=== PATIENT | male | born 1955 | race Caucasian/White ===

== ENCOUNTER 2019-10-31 12:28 | Inpatient (IN) | payer OTHER, MEDICARE ==
--- NOTE | 2019-10-31 13:19 | PDOC ---
History of Present Illness <Caitlin Ortega - Last Filed: 10/31/19 13:22> - General History Source: Patient Exam Limitations: No Limitations - History of Present Illness Initial Comments: 10/31/19 13:19 Source: Patient, altered, poor recall of today PCP: Alonzo Schulte HPI: 64yo M pmh HTN, DM, HLD, depression, anxiety and chronic neck and back pain presenting s/p fall at home at 4AM. Patient made coffee at 4AM, lost all recollection from that point onward. Family reports that patient has been treated for depression by PCP Dr. Schulte with Abilify, Lexapro, and PRN xanax and percocet. Dr. Schulte discontinued the Lexapro, family grew concerned and called to ask why. At this point patient was restarted on Symbalta. Over this period, patient has increased his xanax and percocet use, taking them and neglecting his other medications (BP, HLD, DM medications). Family reports that patient has been taking percocet every 1-1.5 hours, appeared to be altered for several days - insisted on driving despite intoxication, was found down this afternoon and was brought to the ED. Per family - patient has been on Xanax and Percocet for 10 years for leg pain and depression. Patient takes 1.5 pills of 10-325 percocet every 2-3 hours. He often washes these down with Red Bull per family. He was originally prescribed percocet for bilateral knee pain over 10 years ago. Per family, he has been experience more frequent falls over the past 2 months without significant head trauma. He now reports that he fell onto his arms without striking his head around 4 AM. Last medication use was at 2 AM. He was unable to get up and was moved with the help of EMS. Endorses continued weakness, denies any other concerns. Has never has a psychiatrist, medications are all managed by his PCP who has worked with family to attempt to change or wean his regimen. All: NKDA Meds: Per chart, noncompliant PMH: As above PSH: Abdominal Surgery 10+ years ago <Samir Del Cid - Last Filed: 10/31/19 18:05> - General Chief Complaint: Injury Stated Complaint: lethargic Time Seen by Provider: 02/23/20 13:17 Past History <Hugo Ortegaa Nettie - Last Filed: 10/31/19 13:22> - Travel Traveled outside of the country in the last 30 days: No Close contact w/someone who was outside of country & ill: No - Past Medical History COPD: No Diabetes: Yes GI Disorders: Yes (diverticulitis) HTN: Yes Hypercholesterolemia: Yes Psychiatric Problems: Yes (depression) - Surgical History Abdominal Surgery: Yes (colon resection) Neurologic Surgery: Yes (back) - Psycho Social/Smoking Cessation Hx Smoking History: Never smoked Have you smoked in the past 12 months: No Hx Alcohol Use: No Drug/Substance Use Hx: No <Samir Del Cid - Last Filed: 10/31/19 18:05> - Past Medical History Allergies/Adverse Reactions: Allergies Allergy/AdvReac Type Severity Reaction Status Date / Time No Known Allergies Allergy Verified 10/31/19 14:53 Home Medications: Ambulatory Orders Alprazolam 1 mg PO TID 10/31/19 Amlodipine/Atorvastatin [Amlodipine-Atorvast 5-20 mg] 1 each PO ASDIR 10/31/19 Aripiprazole 5 mg PO DAILY 10/31/19 Diclofenac Sodium 75 mg PO BID 10/31/19 Duloxetine HCl 60 mg PO DAILY 10/31/19 Escitalopram Oxalate [Lexapro -] 20 mg PO DAILY 10/31/19 Glipizide Xl [Glucotrol Xl -] 10 mg PO BID 10/31/19 Lisinopril/Hydrochlorothiazide [Lisinopril-Hctz 20-12.5 mg Tab] 1 each PO DAILY 10/31/19 Oxycodone HCl/Acetaminophen [Oxycodone-Acetaminophen 10-325] 1 each PO Q4H PRN 10/31/19 Pantoprazole Sodium 40 mg PO DAILY 10/31/19 Rosuvastatin [Crestor -] 10 mg PO DAILY 10/31/19 Review of Systems - Review of Systems Able to Perform ROS?: Yes Is the patient limited Gambian proficient: Yes Constitutional: Yes: Diaphoresis. No: Chills, Fever HEENTM: No: Nose Congestion, Throat Pain Respiratory: No: Cough, Shortness of Breath Cardiac (ROS): No: Chest Pain, Edema, Irregular Heart Rate, Lightheadedness, Palpitations, Syncope, Chest Tightness ABD/GI: No: Blood Streaked Bowels, Constipated, Diarrhea, Nausea, Poor Appetite , Poor Fluid Intake, Vomiting, Tarry Stools : No: Burning, Dysuria, Frequency Musculoskeletal: No: Muscle Pain, Muscle Weakness, Neck Pain Integumentary: No: Bruising, Pruritus, Rash Neurological: No: Headache, Numbness, Tingling, Weakness Psychiatric: No: Stressors, Change in Appetite Endocrine: No: Increased Thirst, Increased Urine Hematologic/Lymphatic: No: Anemia, Blood Clots, Easy Bleeding All Other Systems: Reviewed and Negative <Samir Del Cid - Last Filed: 10/31/19 18:05> *Physical Exam - Vital Signs Last Vital Signs Temp Pulse Resp BP Pulse Ox 99.1 F 102 H 20 136/68 93 L 10/31/19 12:53 10/31/19 12:53 10/31/19 12:53 10/31/19 12:53 10/31/19 12:53 <JordanCaitlin Nettie - Last Filed: 10/31/19 13:22> - Vital Signs Last Vital Signs Temp Pulse Resp BP Pulse Ox 99.1 F 102 H 20 136/68 93 L 10/31/19 12:53 10/31/19 12:53 10/31/19 12:53 10/31/19 12:53 10/31/19 12:53 - Physical Exam 10/31/19 15:14 Vitals reviewed, low grade fever, tachycardic, sat low 90s GEN: Well appearing, appears stated age, NAD, comfortable. AAOx3. HEENT: NCAT, EOMI, PERRL. Sclera anicteric, noninjected. No facial asymmetry. Moist mucous membranes. Normal voice. Trachea midline. CV: RRR, S1/S2, no murmurs / rubs / gallops appreciated. LUNG: CTAB, normal work of breathing. No wheezes, rales, rhonchi. No cough. Speaking full sentences. GI: Soft, NTND, +BS, no guarding, no rebound. No masses. Neg CVAT b/l. EXTREMITIES: 2+ distal pulses. No LE edema. No obvious deformities of all extremities. SKIN: Warm, +diaphoretic, no rashes appreciated, non-jaundiced. PSYCH: Normal mood and affect. Cooperative and appropriate. NEURO: CN grossly intact. Grossly weak, unable to turn himself over. <Samir Del Cid - Last Filed: 10/31/19 18:05> ED Treatment Course - ADDITIONAL ORDERS Additional order review: Laboratory Results 10/31/19 12:59 POC Glucometer 181 10/31/19 12:59 POC Glucometer 181 <Caitlin Ortega - Last Filed: 10/31/19 13:22> - LABORATORY CBC & Chemistry Diagram: 10/31/19 14:13 10/31/19 14:13 - ADDITIONAL ORDERS Additional order review: Laboratory Results 10/31/19 12:59 POC Glucometer 181 10/31/19 12:59 POC Glucometer 181 <Samir Del Cid - Last Filed: 10/31/19 18:05> Medical Decision Making - Medical Decision Making 10/31/19 14:12 64yo M pmh HTN, DM, HLD, depression, anxiety and chronic neck and back pain presenting s/p fall at home at 4AM with retrograde amnesia in setting of reported xanax / percocet abuse. History concerning for drug use, amnesia. Exam notable for tachycardia, reduced O2Sat, tachypnea, low-grade temperature. DDX: Intoxication, Overdose, Withdrawal, Seizure, Liver failure, Vascular accident, Infection, Electrolyte derangement, Trauma. - CBC, CMP, Cardiac, TSH, Coags, VBG, BGM, Ammonia - UA, UTox, Acetaminophen, Salicylates - Cardiac Monitoring - EKG, CXR, NCHCT 10/31/19 15:24 - 0.50 Ativan IV for possible withdrawal (>12hours since last xanax use) 10/31/19 15:27 Laboratory Tests 10/31/19 10/31/19 10/31/19 12:59 14:13 14:13 WBC RBC Hgb Hct MCV MCH MCHC RDW Plt Count MPV Absolute Neuts (auto) Neutrophils % Lymphocytes % Monocytes % Eosinophils % Basophils % Nucleated RBC % PT with INR 11.90 INR 1.01 PTT (Actin FS) 27.1 VBG pH POC VBG pCO2 POC VBG pO2 VBG HCO3 VBG O2 Sat ([place]) VBG Base Excess Sodium Potassium Chloride Carbon Dioxide Anion Gap BUN Creatinine Est GFR (CKD-EPI)AfAm Est GFR (CKD-EPI)NonAf POC Glucometer 181 Random Glucose Lactic Acid Calcium Total Bilirubin AST ALT Alkaline Phosphatase Troponin I 0.05 Total Protein Albumin TSH 10/31/19 10/31/19 10/31/19 14:13 14:13 14:13 WBC 8.9 RBC 3.92 L Hgb 12.3 Hct 36.3 MCV 92.7 MCH 31.5 MCHC 34.0 RDW 12.7 Plt Count 363 MPV 7.3 L Absolute Neuts (auto) 7.4 Neutrophils % 83.1 H D Lymphocytes % 9.9 D Monocytes % 6.6 Eosinophils % 0.1 D Basophils % 0.3 Nucleated RBC % 0 PT with INR INR PTT (Actin FS) VBG pH POC VBG pCO2 POC VBG pO2 VBG HCO3 VBG O2 Sat ([place]) VBG Base Excess Sodium 140 Potassium 4.0 Chloride 106 Carbon Dioxide 27 Anion Gap 8 BUN 24.1 H Creatinine 1.0 Est GFR (CKD-EPI)AfAm 90.50 Est GFR (CKD-EPI)NonAf 78.08 POC Glucometer Random Glucose 200 H Lactic Acid 1.5 Calcium 9.5 Total Bilirubin 0.5 AST 30 ALT 28 Alkaline Phosphatase 84 Troponin I Total Protein 7.7 Albumin 4.1 TSH 0.68 10/31/19 14:13 WBC RBC Hgb Hct MCV MCH MCHC RDW Plt Count MPV Absolute Neuts (auto) Neutrophils % Lymphocytes % Monocytes % Eosinophils % Basophils % Nucleated RBC % PT with INR INR PTT (Actin FS) VBG pH 7.40 POC VBG pCO2 42.5 POC VBG pO2 58 H VBG HCO3 25.9 VBG O2 Sat ([place]) 86.5 H VBG Base Excess 1.5 Sodium Potassium Chloride Carbon Dioxide Anion Gap BUN Creatinine Est GFR (CKD-EPI)AfAm Est GFR (CKD-EPI)NonAf POC Glucometer Random Glucose Lactic Acid Calcium Total Bilirubin AST ALT Alkaline Phosphatase Troponin I Total Protein Albumin TSH - Labs largely unremarkable, imaging pending - No acute chest pathology on Xray 10/31/19 17:18 - Urine without UTI - Urine Positive for Benzos and Opiates - Spoke with PCP Dr. Schulte, agrees with admission for weakness, weaning from medications - PCP recommend disposition to rehab program pending physical weaning Dispo: Med/Surg - Med rec / Poly Pharm assessment - Weakness - Social Work for OP Rehab? 10/31/19 18:04 - Sign-out given to Dr. Inderjit Person <Samir Del Cid - Last Filed: 10/31/19 18:05> Discharge <Caitlin Ortega - Last Filed: 10/31/19 13:22> - Discharge Information Problems reviewed: Yes <Samir Del Cid - Last Filed: 10/31/19 18:05> - Discharge Information Clinical Impression/Diagnosis: Weakness, Benzodiazepine dependence Fall Qualifiers: Encounter type: initial encounter Qualified Code(s): W19.XXXA - Unspecified fall, initial encounter Medication adverse effect Qualifiers: Encounter type: subsequent encounter Qualified Code(s): T50.905D - Adverse effect of unspecified drugs, medicaments and biological substances, subsequent encounter Opiate dependence Qualifiers: Substance use status: with unspecified opioid-induced disorder Qualified Code(s ): F11.29 - Opioid dependence with unspecified opioid-induced disorder Condition: Guarded - Follow up/Referral Referrals: Alonzo Schulte MD [Primary Care Provider] -
--- NOTE | 2019-10-31 13:24 | PDOC ---
Attending Attestation - Resident Resident Name: Samir Del Cid - ED Attending Attestation I have performed the following: I have examined & evaluated the patient, The case was reviewed & discussed with the resident, I agree w/resident's findings & plan, Exceptions are as noted - HPI HPI: 10/31/19 13:22 64 yo male who has long history of depression and takes several psychotropic meds took percocet and became very fatigued and laid on the floor . Family reports he has had multiple falls lately 10/31/19 18:31 - Physicial Exam PE: 10/31/19 18:43 64 yo BIBA from home becasue he was so weak he spent the night on the floor. He had been taking both zantac and pain meds head no scalp lacerations neck supple lungs cta b/l cvs [id number] abd no rebound, no guarding extremities no deformities neuro conversant ,moving all extremities 10/31/19 19:01 - Medical Decision Making 10/31/19 17:18 Drug screen is positive for opiates and benzos CBC and chemistries are essentially unremarkable 64-year-old male with chronic knee pain and long-term Percocet use has had multiple falls Dr Schulte agrees to admission 10/31/19 17:19 ct scan head
[2019-10-31] MEDS ORDERED: SODIUM CHLORIDE 0.9% 500 ML INFUS.BAG IV ONE (13:56)
[2019-10-31 14:41] LABS: VENOUS PC02 42.5 mmHg (38-52); VENOUS PH 7.4 (7.31-7.41)
[2019-10-31 14:46] LABS: BASO % 0.3 % (0-2.0); EOS % 0.1 % (0-4.5); HEMATOCRIT 36.3 % (35.4-49); HEMOGLOBIN 12.3 GM/dL (11.7-16.9); LYMPH % 9.9 % (8-40); MCH 31.5 pg (25.7-33.7); MEAN CELL VOLUME 92.7 fl (80-96); MEAN PLT VOLUME 7.3 fl (7.5-11.1); MONO % 6.6 % (3.8-10.2); NEUT % 83.1 % (42.8-82.8); PLATELET COUNT 363 K/MM3 (134-434); RBC 3.92 M/mm3 (4.00-5.60); RDW 12.7 % (11.9-15.9); WHITE BLOOD COUNT 8.9 K/mm3 (4.0-10.0)
[2019-10-31 15:02] LABS: INR 1.01 (0.83-1.09); PROTHROMBIN TIME (PATIENT) 11.9 SEC (9.7-13.0)
[2019-10-31 15:04] LABS: ACTIVATED PTT 27.1 SECONDS (25.2-36.5)
[2019-10-31] MEDS ORDERED: LORazepam 2 MG/ML SDV VIAL ONE (15:06)
[2019-10-31 15:09] LABS: ALBUMIN 4.1 g/dl (3.4-5.0); BILIRUBIN,TOTAL 0.5 mg/dL (0.2-1); BLOOD UREA NITROGEN 24.1 mg/dL (7-18); CALCIUM 9.5 mg/dL (8.5-10.1); TOT PROT 7.7 g/dl (6.4-8.2)
[2019-10-31 15:40] LABS: EPI CELLS 0.2 /HPF (0-5/HPF); HYALINE CASTS 0 /lpf (0-8); URINE APPEARANCE CLEAR; URINE BACTERIA 0.3 /hpf (NEGATIVE); URINE BILIRUBIN NEGATIVE (NEGATIVE); URINE COLOR YELLOW; URINE GLUCOSE (UA) NEGATIVE (NEGATIVE); URINE KETONE 1+ (NEGATIVE); URINE LEUK ESTERASE NEGATIVE (NEGATIVE); URINE NITRITE NEGATIVE (NEGATIVE); URINE PROTEIN 1+ (NEGATIVE); URINE RBC 0 /hpf (0-4); URINE UROBILINOGEN 0.2 mg/dL (0.2-1.0); URINE WBC 0 /hpf (0-5)
[2019-10-31 15:47] LABS: COCAINE, UR NEGATIVE ng/ml (CUTOFF=300); METHADONE, UR NEGATIVE ng/ml (CUTOFF=300); PHENCYCLIDINE,URINE NEGATIVE ng/ml (CUTOFF=25); URINE AMPHETAMINES NEGATIVE ng/ml (CUTOFF=500); URINE BARBITURATES NEGATIVE ng/ml (CUTOFF=200)
[2019-10-31 15:49] LABS: OPIATES, URI POSITIVE ng/ml (CUTOFF=300); URINE BENZODIAZEPINES POSITIVE ng/ml (CUTOFF=200)
--- NOTE | 2019-10-31 18:56 | HP ---
CHIEF COMPLAINT: mechanical fall PCP: Dr. Schulte HISTORY OF PRESENT ILLNESS: This is a 64 y/o M with a PMHx of DM, HTN, HLD, anxiety, chronic neck/knee pain(on chronic percocet use) on several psych meds presenting s/p mechanical fall. Pt states he was making coffee around 4 am and was trying to sit down but missed the chair and fell on his buttock. He denies any loc, head trauma, bowel/bladder incontinence, focal weakness, or seizure like activity. States he could not get up from the floor due to "arm weakness". His found him lying on his belly. Pt has not taken any of his medications for the past 2-3 wks except for 1 1/2 percocet pills for 20+ yrs and 1mg TID of xanax prescribed by Dr. Schulte for his depression and chronic knee pain. He had a discectomy L4-L5 surgery and had a fall in past injuring his arm. Pt denies ever seeing a psych doctor. He refused to see one although he was recommended to see one numerous times ER course was notable for: (1) (2) (3) Recent Travel: denies PAST SURGICAL HISTORY: Social History: Smoking: denies Alcohol: denies Drugs: denies Allergies No Known Allergies Allergy (Verified 10/31/19 14:53) HOME MEDICATIONS: Home Medications Medication Instructions Recorded Alprazolam 1 mg PO TID 10/31/19 Amlodipine/Atorvastatin 1 each PO ASDIR 10/31/19 [Amlodipine-Atorvast 5-20 mg] Aripiprazole 5 mg PO DAILY 10/31/19 Diclofenac Sodium 75 mg PO BID 10/31/19 Duloxetine HCl 60 mg PO DAILY 10/31/19 Escitalopram Oxalate [Lexapro -] 20 mg PO DAILY 10/31/19 Glipizide Xl [Glucotrol Xl -] 10 mg PO BID 10/31/19 Lisinopril/Hydrochlorothiazide 1 each PO DAILY 10/31/19 [Lisinopril-Hctz 20-12.5 mg Tab] Oxycodone HCl/Acetaminophen 1 each PO Q4H PRN 10/31/19 [Oxycodone-Acetaminophen 10-325] Pantoprazole Sodium 40 mg PO DAILY 10/31/19 Rosuvastatin [Crestor -] 10 mg PO DAILY 10/31/19 REVIEW OF SYSTEMS Negative PHYSICAL EXAMINATION Vital Signs - 24 hr 10/31/19 10/31/19 12:53 15:33 Temperature 99.1 F Pulse Rate 102 H Pulse Rate [ 85 Radial] Respiratory 20 20 Rate Blood Pressure 136/68 Blood Pressure 129/76 [Left Arm] O2 Sat by Pulse 93 L 95 Oximetry (%) GENERAL: Awake, alert, and oriented, in no acute distress. Lying comfortably in bed w at bedside. EYES: Pupils equal, round and reactive to light, miosis b/l, extraocular movements intact. LUNGS: Breath sounds equal, clear to auscultation bilaterally. No wheezes, and no crackles. No accessory muscle use. HEART: Regular rate and rhythm, normal S1 and S2 without murmur, rub or gallop. ABDOMEN: Soft, nontender, not distended, normoactive bowel sounds, no guarding, no rebound, no masses. No hepatomegaly or splenomegaly. LOWER EXTREMITIES: 2+ pulses, warm, well-perfused. No calf tenderness. No peripheral edema. NEUROLOGICAL: Cranial nerves II-XII intact. Normal speech. Normal gait. PSYCHIATRIC: Cooperative. Good eye contact. SKIN: Warm, dry, no rashes or lesions noted, normal capillary refill. Laboratory Results - last 24 hr 10/31/19 10/31/19 10/31/19 14:13 14:13 14:13 WBC 8.9 RBC 3.92 L Hgb 12.3 Hct 36.3 MCV 92.7 MCH 31.5 MCHC 34.0 RDW 12.7 Plt Count 363 MPV 7.3 L Absolute Neuts (auto) 7.4 Neutrophils % 83.1 H D Lymphocytes % 9.9 D Monocytes % 6.6 Eosinophils % 0.1 D Basophils % 0.3 Nucleated RBC % 0 PT with INR INR PTT (Actin FS) VBG pH POC VBG pCO2 POC VBG pO2 VBG HCO3 VBG O2 Sat ([place]) VBG Base Excess Sodium 140 Potassium 4.0 Chloride 106 Carbon Dioxide 27 Anion Gap 8 BUN 24.1 H Creatinine 1.0 Est GFR (CKD-EPI)AfAm 90.50 Est GFR (CKD-EPI)NonAf 78.08 POC Glucometer Random Glucose 200 H Lactic Acid 1.5 Calcium 9.5 Total Bilirubin 0.5 AST 30 ALT 28 Alkaline Phosphatase 84 Ammonia Troponin I Total Protein 7.7 Albumin 4.1 TSH 0.68 Urine Color Urine Appearance Urine pH Ur Specific [place] Urine Protein Urine Glucose (UA) Urine Ketones Urine Blood Urine Nitrite Urine Bilirubin Urine Urobilinogen Ur Leukocyte Esterase Urine WBC (Auto) Urine RBC (Auto) Urine Casts (Auto) U Epithel Cells (Auto) Urine Bacteria (Auto) Salicylates Opiates Screen Methadone Screen Barbiturate Screen Phencyclidine Screen Ur Amphetamines Screen MDMA (Ecstasy) Screen Benzodiazepines Screen Cocaine Screen U Marijuana (THC) Screen 10/31/19 10/31/19 10/31/19 14:13 15:20 15:20 WBC RBC Hgb Hct MCV MCH MCHC RDW Plt Count MPV Absolute Neuts (auto) Neutrophils % Lymphocytes % Monocytes % Eosinophils % Basophils % Nucleated RBC % PT with INR INR PTT (Actin FS) VBG pH 7.40 POC VBG pCO2 42.5 POC VBG pO2 58 H VBG HCO3 25.9 VBG O2 Sat ([place]) 86.5 H VBG Base Excess 1.5 Sodium Potassium Chloride Carbon Dioxide Anion Gap BUN Creatinine Est GFR (CKD-EPI)AfAm Est GFR (CKD-EPI)NonAf POC Glucometer Random Glucose Lactic Acid Calcium Total Bilirubin AST ALT Alkaline Phosphatase Ammonia Troponin I Total Protein Albumin TSH Urine Color Yellow Urine Appearance Clear Urine pH 5.0 Ur Specific [place] 1.016 Urine Protein 1+ H Urine Glucose (UA) Negative Urine Ketones 1+ H Urine Blood Trace Urine Nitrite Negative Urine Bilirubin Negative Urine Urobilinogen 0.2 Ur Leukocyte Esterase Negative Urine WBC (Auto) 0 Urine RBC (Auto) 0 Urine Casts (Auto) 0 U Epithel Cells (Auto) 0.2 Urine Bacteria (Auto) 0.3 Salicylates Opiates Screen Positive A* Methadone Screen Negative Barbiturate Screen Negative Phencyclidine Screen Negative Ur Amphetamines Screen Negative MDMA (Ecstasy) Screen Negative Benzodiazepines Screen Positive A* Cocaine Screen Negative U Marijuana (THC) Screen Negative ASSESSMENT/PLAN: This is a 64 y/o M with a PMHx of DM, HTN, HLD, anxiety, chronic neck/knee pain( on chronic percocet use) on several psych meds presenting s/p mechanical fall. Pt states he was making coffee around 4 am and was trying to sit down but missed the chair and fell on his buttock. #Mechanical fall - high dose of alprazolam, percocet for multiple years leading to weakness and confusion - Detox consulted (Rony) recommending 20mg methadone given first time user of methadone - Psych consulted to help pt wean off xanax - dc opiates, wean off xanax and place pt on ativan prn protocol - UTOX -Benzos and opiates - likely mechanical but because pt. is poor historian, endorses forgetfulness ( likely 2/2 chronic benzo use), will also evaluate for possible syncope obtain B/L knee x-ray, L spine xray, Obtain echo/carotids, Trops/EKG x3, obtain orthostatics, PT evaluation, send B12,RPR, TSH, lipids, A1c Depression - not suicidal at this time - stable mood - can restart SSRI. DM -continue sliding scale HTN - continue home meds as prescribed HLD - continue statin as prescribed GERD - Restart ppi DVT ppx: Heparin 5K TID Visit type - Emergency Visit Emergency Visit: Yes ED Registration Date: 10/31/19 Care time: The patient presented to the Emergency Department on the above date and was hospitalized for further evaluation of their emergent condition. - New Patient This patient is new to me today: No - Critical Care Critical Care patient: No ATTENDING PHYSICIAN STATEMENT I saw and evaluated the patient. I reviewed the resident's note and discussed the case with the resident. I agree with the resident's findings and plan as documented. SUBJECTIVE: OBJECTIVE: ASSESSMENT AND PLAN:
--- NOTE | 2019-10-31 19:28 | PN ---
Teaching Attending Note Name of Resident: Inderjit Person ATTENDING PHYSICIAN STATEMENT I saw and evaluated the patient. I reviewed the resident's note and discussed the case with the resident. I agree with the resident's findings and plan as documented. SUBJECTIVE: Patient seen and examined bedside, alert, orientated, denies complaints. Endorses mechanical fall which occured around 2am where he missed his chair, felt "weak" to get back up. Otherwise VSS. OBJECTIVE: GA: Awake, alert, and oriented, in no acute distress. ambulating around room. EYES: Pupils equal, round and reactive to light, mild miosis noted, extraocular movements intact. LUNGS: Breath sounds equal, clear to auscultation bilaterally. No wheezes, and no crackles. No accessory muscle use. HEART: Regular rate and rhythm, normal S1 and S2 without murmur, rub or gallop. ABDOMEN: obese, Soft, nontender, normoactive bowel sounds, no guarding, no rebound, no masses. No hepatomegaly or splenomegaly. LOWER EXTREMITIES: 2+ pulses, warm, well-perfused. No calf tenderness. No peripheral edema. NEUROLOGICAL: Cranial nerves II-XII intact. Normal speech. Normal gait. PSYCHIATRIC: Cooperative. Good eye contact. SKIN: Warm, dry, no rashes or lesions noted, normal capillary refill. Vital Signs - 24 hr 10/31/19 10/31/19 12:53 15:33 Temperature 99.1 F Pulse Rate 102 H Pulse Rate [ 85 Radial] Respiratory 20 20 Rate Blood Pressure 136/68 Blood Pressure 129/76 [Left Arm] O2 Sat by Pulse 93 L 95 Oximetry (%) Laboratory Results - last 24 hr 10/31/19 10/31/19 10/31/19 12:59 14:13 14:13 WBC RBC Hgb Hct MCV MCH MCHC RDW Plt Count MPV Absolute Neuts (auto) Neutrophils % Lymphocytes % Monocytes % Eosinophils % Basophils % Nucleated RBC % PT with INR 11.90 INR 1.01 PTT (Actin FS) 27.1 VBG pH POC VBG pCO2 POC VBG pO2 VBG HCO3 VBG O2 Sat ([place]) VBG Base Excess Sodium Potassium Chloride Carbon Dioxide Anion Gap BUN Creatinine Est GFR (CKD-EPI)AfAm Est GFR (CKD-EPI)NonAf POC Glucometer 181 Random Glucose Lactic Acid Calcium Total Bilirubin AST ALT Alkaline Phosphatase Ammonia Troponin I 0.05 Total Protein Albumin TSH Urine Color Urine Appearance Urine pH Ur Specific [place] Urine Protein Urine Glucose (UA) Urine Ketones Urine Blood Urine Nitrite Urine Bilirubin Urine Urobilinogen Ur Leukocyte Esterase Urine WBC (Auto) Urine RBC (Auto) Urine Casts (Auto) U Epithel Cells (Auto) Urine Bacteria (Auto) Salicylates Opiates Screen Methadone Screen Acetaminophen Barbiturate Screen Phencyclidine Screen Ur Amphetamines Screen MDMA (Ecstasy) Screen Benzodiazepines Screen Cocaine Screen U Marijuana (THC) Screen 10/31/19 10/31/19 10/31/19 14:13 14:13 14:13 WBC 8.9 RBC 3.92 L Hgb 12.3 Hct 36.3 MCV 92.7 MCH 31.5 MCHC 34.0 RDW 12.7 Plt Count 363 MPV 7.3 L Absolute Neuts (auto) 7.4 Neutrophils % 83.1 H D Lymphocytes % 9.9 D Monocytes % 6.6 Eosinophils % 0.1 D Basophils % 0.3 Nucleated RBC % 0 PT with INR INR PTT (Actin FS) VBG pH POC VBG pCO2 POC VBG pO2 VBG HCO3 VBG O2 Sat ([place]) VBG Base Excess Sodium 140 Potassium 4.0 Chloride 106 Carbon Dioxide 27 Anion Gap 8 BUN 24.1 H Creatinine 1.0 Est GFR (CKD-EPI)AfAm 90.50 Est GFR (CKD-EPI)NonAf 78.08 POC Glucometer Random Glucose 200 H Lactic Acid 1.5 Calcium 9.5 Total Bilirubin 0.5 AST 30 ALT 28 Alkaline Phosphatase 84 Ammonia Troponin I Total Protein 7.7 Albumin 4.1 TSH 0.68 Urine Color Urine Appearance Urine pH Ur Specific [place] Urine Protein Urine Glucose (UA) Urine Ketones Urine Blood Urine Nitrite Urine Bilirubin Urine Urobilinogen Ur Leukocyte Esterase Urine WBC (Auto) Urine RBC (Auto) Urine Casts (Auto) U Epithel Cells (Auto) Urine Bacteria (Auto) Salicylates Opiates Screen Methadone Screen Acetaminophen Barbiturate Screen Phencyclidine Screen Ur Amphetamines Screen MDMA (Ecstasy) Screen Benzodiazepines Screen Cocaine Screen U Marijuana (THC) Screen 10/31/19 10/31/19 10/31/19 14:13 15:20 15:20 WBC RBC Hgb Hct MCV MCH MCHC RDW Plt Count MPV Absolute Neuts (auto) Neutrophils % Lymphocytes % Monocytes % Eosinophils % Basophils % Nucleated RBC % PT with INR INR PTT (Actin FS) VBG pH 7.40 POC VBG pCO2 42.5 POC VBG pO2 58 H VBG HCO3 25.9 VBG O2 Sat ([place]) 86.5 H VBG Base Excess 1.5 Sodium Potassium Chloride Carbon Dioxide Anion Gap BUN Creatinine Est GFR (CKD-EPI)AfAm Est GFR (CKD-EPI)NonAf POC Glucometer Random Glucose Lactic Acid Calcium Total Bilirubin AST ALT Alkaline Phosphatase Ammonia Troponin I Total Protein Albumin TSH Urine Color Yellow Urine Appearance Clear Urine pH 5.0 Ur Specific [place] 1.016 Urine Protein 1+ H Urine Glucose (UA) Negative Urine Ketones 1+ H Urine Blood Trace Urine Nitrite Negative Urine Bilirubin Negative Urine Urobilinogen 0.2 Ur Leukocyte Esterase Negative Urine WBC (Auto) 0 Urine RBC (Auto) 0 Urine Casts (Auto) 0 U Epithel Cells (Auto) 0.2 Urine Bacteria (Auto) 0.3 Salicylates Opiates Screen Positive A* Methadone Screen Negative Acetaminophen Barbiturate Screen Negative Phencyclidine Screen Negative Ur Amphetamines Screen Negative MDMA (Ecstasy) Screen Negative Benzodiazepines Screen Positive A* Cocaine Screen Negative U Marijuana (THC) Screen Negative 10/31/19 10/31/19 10/31/19 18:00 18:00 18:00 WBC RBC Hgb Hct MCV MCH MCHC RDW Plt Count MPV Absolute Neuts (auto) Neutrophils % Lymphocytes % Monocytes % Eosinophils % Basophils % Nucleated RBC % PT with INR INR PTT (Actin FS) VBG pH POC VBG pCO2 POC VBG pO2 VBG HCO3 VBG O2 Sat ([place]) VBG Base Excess Sodium Potassium Chloride Carbon Dioxide Anion Gap BUN Creatinine Est GFR (CKD-EPI)AfAm Est GFR (CKD-EPI)NonAf POC Glucometer Random Glucose Lactic Acid Calcium Total Bilirubin AST ALT Alkaline Phosphatase Ammonia 20.00 Troponin I Total Protein Albumin TSH Urine Color Urine Appearance Urine pH Ur Specific [place] Urine Protein Urine Glucose (UA) Urine Ketones Urine Blood Urine Nitrite Urine Bilirubin Urine Urobilinogen Ur Leukocyte Esterase Urine WBC (Auto) Urine RBC (Auto) Urine Casts (Auto) U Epithel Cells (Auto) Urine Bacteria (Auto) Salicylates < 1.7 L Opiates Screen Methadone Screen Acetaminophen <2.0 Barbiturate Screen Phencyclidine Screen Ur Amphetamines Screen MDMA (Ecstasy) Screen Benzodiazepines Screen Cocaine Screen U Marijuana (THC) Screen Home Medications Medication Instructions Recorded Alprazolam 1 mg PO TID 10/31/19 Amlodipine/Atorvastatin 1 each PO ASDIR 10/31/19 [Amlodipine-Atorvast 5-20 mg] Aripiprazole 5 mg PO DAILY 10/31/19 Diclofenac Sodium 75 mg PO BID 10/31/19 Duloxetine HCl 60 mg PO DAILY 10/31/19 Escitalopram Oxalate [Lexapro -] 20 mg PO DAILY 10/31/19 Glipizide Xl [Glucotrol Xl -] 10 mg PO BID 10/31/19 Lisinopril/Hydrochlorothiazide 1 each PO DAILY 10/31/19 [Lisinopril-Hctz 20-12.5 mg Tab] Oxycodone HCl/Acetaminophen 1 each PO Q4H PRN 10/31/19 [Oxycodone-Acetaminophen 10-325] Pantoprazole Sodium 40 mg PO DAILY 10/31/19 Rosuvastatin [Crestor -] 10 mg PO DAILY 10/31/19 Current Medications Generic Name Dose Route Start Last Admin Trade Name Freq PRN Reason Stop Dose Admin Heparin Sodium (Porcine) 5,000 unit 10/31/19 22:00 Heparin - SQ TID RACHEL Insulin Aspart 0 units 10/31/19 22:00 Novolog Vial SQ ACHS [facility] Protocol ASSESSMENT AND PLAN: Fall likely mechanical but because pt. is poor historian, endorses forgetfulness ( likely 2/2 chronic benzo use), will also evaluate for possible syncope obtain B/L knee x-ray, L spine xray, Obtain echo/carotids, Trops/EKG x3, obtain orthostatics, DC Percocet (no indication treat pain with Tylenol/NSAIDs for now) , wean off Xanax (watch for withdrawal, Ativan PRN for withdrawal symptoms) PT evaluation, send B12,RPR, TSH, lipids, A1c Psych evaluation for proper weaning of Xanax DM ISS, basal insulin PRN HTN cont. meds as tolerated HLD continue statin as prescribed Anxiety,depression Denies SI/HI/AH/VH restart SSRI GERD restaRT PPI DVT ppx: Heparin SC Tele monitoring for evaluation of possible syncope
[2019-10-31] MEDS: HEPARIN NA (PORCINE) 5,000 UNITS/ML 1ML VIAL SQ SCH (21:50)
[2019-10-31] MEDS: INSULIN SLIDING SCALE (NOVOLOG) 1 VIAL SQ SCH (21:51)
[2019-10-31] MEDS ORDERED: ROSUVASTATIN CA 10 MG TABLET (FP) PO SCH (22:00)
[2019-10-31] MEDS ORDERED: DICLOFENAC SODIUM 75 MG TABLET.DR PO SCH (22:00)
[2019-10-31 23:43] VITALS: BMI 32.8
[2019-11-01] MEDS: HEPARIN NA (PORCINE) 5,000 UNITS/ML 1ML VIAL SQ SCH ×3 (06:22→22:05)
[2019-11-01] MEDS: INSULIN SLIDING SCALE (NOVOLOG) 1 VIAL SQ SCH ×4 (06:22→22:12)
--- NOTE | 2019-11-01 09:19 | EKG ---
Test Reason : Blood Pressure : / mmHG Vent. Rate : 091 BPM Atrial Rate : 091 BPM P-R Int : 148 ms QRS Dur : 082 ms QT Int : 366 ms P-R-T Axes : 027 -01 014 degrees QTc Int : 450 ms POOR DATA QUALITY, INTERPRETATION MAY BE ADVERSELY AFFECTED NORMAL SINUS RHYTHM NORMAL ECG WHEN COMPARED WITH ECG OF 16-JAN-2007 13:24, No significant changes Confirmed by Isatu Baltazar ([id number]) on 11/01/2019 9:19:34 AM Referred By: Confirmed By:Isatu Baltazar
[2019-11-01] MEDS ORDERED: HYDROCHLOROTHIAZIDE 12.5 MG CAPSULE (FP) PO SCH (10:00)
[2019-11-01] MEDS ORDERED: PANTOPRAZOLE 40 MG TABLET PO SCH (10:00)
[2019-11-01] MEDS ORDERED: LISINOPRIL 20 MG TABLET (FP) PO SCH (10:00)
[2019-11-01] MEDS ORDERED: PATIENT'S OWN MEDICATION (NON-FORMULARY) (Lisinopril/Hydrochlorothiazide [Lisinopril-Hctz PO SCH (10:00)
--- NOTE | 2019-11-01 10:18 | ECHO ---
Name: REY LYLE Exam:Adult Echocardiogram Study Date: 11/01/2019 08:29 AM Age: 64 yrs Reason For Study: SYNCOPE MMode/2D Measurements & Calculations LVOT diam: 2.1 cm LVLd ap4: 7.9 cm EDV(MOD-sp4): 94.6 ml LVLs ap4: 7.1 cm ESV(MOD-sp4): 44.1 ml SV(MOD-sp4): 50.5 ml LAV (MOD-bp): 72.8 ml RV S Jd: 17.6 cm/sec Doppler Measurements & Calculations MV E max jd: 75.7 cm/sec Ao V2 max: 139.6 cm/sec MV A max jd: 105.7 cm/sec Ao max P.8 mmHg MV E/A: 0.72 GUY(V,D): 3.7 cm2 MV dec time: 0.20 sec LV V1 max P.2 mmHg TR max jd: 137.7 cm/sec LV V1 max: 143.6 cm/sec TR max P.6 mmHg Med Peak E' Jd: 7.3 cm/sec Med E/e': 10.4 Lat Peak E' Jd: 7.3 cm/sec Lat E/e': 10.4 Procedure Study Quality: Fair. Left Ventricle The left ventricular size, thickness and function are normal. The left ventricular ejection fraction is normal. Ejection Fraction = 55-60%. The transmitral spectral Doppler flow pattern is suggestive of im paired LV relaxation. Right Ventricle The right ventricle is normal in size and function. Atria The left atrium is mildly dilated. Right atrial size is normal. Mitral Valve The mitral valve is grossly normal. There is no mitral regurgitation noted. Tricuspid Valve The tricuspid valve is not well visualized, but is grossly normal. No tricuspid regurgitation. Aortic Valve The aortic valve is not well visualized. No hemodynamically significant valvular aortic stenosis. No aortic regurgitation is present. Pulmonic Valve The pulmonic valve is not well visualized. Great Vessels The aortic root is normal size. Pericardium/Pleura There is no pericardial effusion. Interpretation Summary LV: Normal size and systolic function,EF 55-60%, impaired relaxation RV: Normal LA: mildly dilated No significant valvular dysfunction. Isatu Baltazar 11/01/2019 10:17 AM
[2019-11-01] MEDS: PANTOPRAZOLE 40 MG TABLET PO SCH (10:30)
[2019-11-01] MEDS: HYDROCHLOROTHIAZIDE 12.5 MG CAPSULE (FP) PO SCH (10:30)
[2019-11-01] MEDS: LISINOPRIL 20 MG TABLET (FP) PO SCH (10:30)
[2019-11-01] MEDS: DICLOFENAC SODIUM 25 MG TABLET.DR PO SCH ×2 (10:33→22:05)
--- NOTE | 2019-11-01 11:01 | CONSULT ---
Consult Detox [facility] Reason for Current Admission/Consult: Oral Opioid Use Disorder Referred by:: Inderjit Person - History History of Present Illness: This is a 64 y/o M with a PMHx of DM, HTN, HLD, anxiety, chronic neck/knee pain( on chronic percocet use) on several psych meds presenting s/p mechanical fall. Pt states he was making coffee around 4 am and was trying to sit down but missed the chair and fell on his buttock. He denies any loc, head trauma, bowel/ bladder incontinence, focal weakness, or seizure like activity. States he could not get up from the floor due to "arm weakness". His found him lying on his belly. Pt has not taken any of his medications for the past 2-3 wks except for 1 1/2 percocet pills for 20+ yrs and 1mg TID of xanax prescribed by Dr. Schulte for his depression and chronic knee pain. He had a discectomy L4-L5 surgery and had a fall in past injuring his arm. Pt denies ever seeing a psych doctor. He refused to see one although he was recommended to see one numerous times - History Source History Provided By: Patient, Medical Record Limitations to Obtaining History: No Limitations - Alcohol/Substance Use Hx Alcohol Use: No - Past Medical History Cardio/Vascular: Yes: HTN, Hyperlipdemia Endocrine: Yes: Diabetes Mellitus - Past Surgical History Additional Surgical History: L4-L5 Discectomy - Significant Medical Findings: Patient seen alert and oriented x 3 in bed in no acute distress. EYES: Pupils equal, round and reactive to light, mild miosis noted, extraocular movements intact. LUNGS: Breath sounds equal, clear to auscultation bilaterally. No wheezes, and no crackles. No accessory muscle use. HEART: Regular rate and rhythm, normal S1 and S2 without murmur, rub or gallop. ABDOMEN: Protuberant, soft, nontender, normoactive bowel sounds, no guarding, no rebound, no masses. No hepatomegaly or splenomegaly. LOWER EXTREMITIES: 2+ pulses, warm, well-perfused. No calf tenderness. No peripheral edema. NEUROLOGICAL: Cranial nerves II-XII intact. Normal speech. Normal gait. PSYCHIATRIC: Cooperative. Good eye contact. SKIN: Warm, dry, no rashes or lesions noted, normal capillary refill. COWS - Scale Resting Pulse: 0= NM 80 or Below Restless Observation: 0= Sits Still Pupil Size: 0= Normal to Room Light Bone or Joint Aches: 0= None Runny Nose/ Eye Tearin= None GI Upset > 30mins: 0= None Tremor Observation: 0= None Yawning Observation: 0= None Anxiety or Irritability: 0= None Goose Flesh Skin: 0=Smooth Skin Assessment Plan - Diagnosis (1) Benzodiazepine dependence Status: Acute (2) Fall Status: Acute Qualifiers: Encounter type: initial encounter Qualified Code(s): W19.XXXA - Unspecified fall, initial encounter (3) Opiate dependence Status: Acute Qualifiers: Substance use status: with unspecified opioid-induced disorder Qualified Code(s): F11.29 - Opioid dependence with unspecified opioid-induced disorder (4) Contusion, forearm Status: Acute - Plan Plan: 1. Opioid Dependence: Patient is in no withdrawals at this time. He did receive 20 mg of methadone yesterday due to his dependence on percocets. Patient is open to inpatient treatment and has gotten a referral to a program close to where he lives. He states his also agrees that he should go to detox to gain abstinence from the oral opioids. He will do inpatient 5 days detox at that facility. He has a written contact there and and he will arrange to admit to that facility. However, he was also offered detox and rehab services at [facility] which at this time he has declined. If he chooses in the future to avail himself of those services, he can just call intake at [facility] to arrange admission there. When he is stable he can be transferred to detox at the private facility. In the meantime, he can remain on low dose methadone 20mg daily until that time. Dr. Uribe
[2019-11-01 11:15] LABS: BASO % 0.4 % (0-2.0); EOS % 0.3 % (0-4.5); HEMATOCRIT 33.8 % (35.4-49); HEMOGLOBIN 11.4 GM/dL (11.7-16.9); LYMPH % 16.7 % (8-40); MCH 31.7 pg (25.7-33.7); MCHC 33.7 g/dl (32.0-35.9); MEAN PLT VOLUME 7.5 fl (7.5-11.1); MONO % 5.6 % (3.8-10.2); PLATELET COUNT 304 K/MM3 (134-434); RDW 12.5 % (11.9-15.9); WHITE BLOOD COUNT 6.4 K/mm3 (4.0-10.0)
[2019-11-01 11:46] LABS: ALBUMIN 3.5 g/dl (3.4-5.0); BILIRUBIN,TOTAL 0.5 mg/dL (0.2-1); BLOOD UREA NITROGEN 17.1 mg/dL (7-18); CALCIUM 8.8 mg/dL (8.5-10.1); CREATININE 0.8 mg/dL (0.55-1.3); MAGNESIUM 2.3 mg/dL (1.8-2.4); PHOSPHOROUS 2.9 mg/dL (2.5-4.9); POTASSIUM 4.1 mmol/L (3.5-5.1); TOT PROT 6.9 g/dl (6.4-8.2)
[2019-11-01] MEDS: LACTATED RINGERS SOLUTION 1,000 ML/1,000 ML INFUS.BAG IV SCH (13:45)
[2019-11-01] MEDS ORDERED: METHADONE HCL 10 MG TABLET PO SCH (14:15)
--- NOTE | 2019-11-01 15:27 | PN ---
Teaching Attending Note Name of Resident: Inderjit Person ATTENDING PHYSICIAN STATEMENT I saw and evaluated the patient. I reviewed the resident's note and discussed the case with the resident. I agree with the resident's findings and plan as documented. SUBJECTIVE: Patient has no complaints. OBJECTIVE: Vital Signs Period Temp Pulse Resp BP Sys/López Pulse Ox Last 24 Hr 97.5 F-98.4 F 78-93 18-20 117-151/54-82 95-97 GENERAL: No distress HEART: S1S2, RRR LUNGS: Clear ABDOMEN: Obese, soft, non-tender, non-distended, normal BS EXTREMITIES: No edema Laboratory Results - last 24 hr 10/31/19 10/31/19 10/31/19 14:13 15:20 15:20 WBC RBC Hgb Hct MCV MCH MCHC RDW Plt Count MPV Absolute Neuts (auto) Neutrophils % Lymphocytes % Monocytes % Eosinophils % Basophils % Nucleated RBC % Sodium 140 Potassium 4.0 Chloride 106 Carbon Dioxide 27 Anion Gap 8 BUN 24.1 H Creatinine 1.0 Est GFR (CKD-EPI)AfAm 90.50 Est GFR (CKD-EPI)NonAf 78.08 POC Glucometer Random Glucose 200 H Lactic Acid Calcium 9.5 Phosphorus Magnesium Total Bilirubin 0.5 AST 30 ALT 28 Alkaline Phosphatase 84 Ammonia Troponin I 0.04 Total Protein 7.7 Albumin 4.1 TSH 0.68 Urine Color Yellow Urine Appearance Clear Urine pH 5.0 Ur Specific [place] 1.016 Urine Protein 1+ H Urine Glucose (UA) Negative Urine Ketones 1+ H Urine Blood Trace Urine Nitrite Negative Urine Bilirubin Negative Urine Urobilinogen 0.2 Ur Leukocyte Esterase Negative Urine WBC (Auto) 0 Urine RBC (Auto) 0 Urine Casts (Auto) 0 U Epithel Cells (Auto) 0.2 Urine Bacteria (Auto) 0.3 Salicylates Opiates Screen Positive A* Methadone Screen Negative Acetaminophen Barbiturate Screen Negative Phencyclidine Screen Negative Ur Amphetamines Screen Negative MDMA (Ecstasy) Screen Negative Benzodiazepines Screen Positive A* Cocaine Screen Negative U Marijuana (THC) Screen Negative 10/31/19 10/31/19 10/31/19 18:00 18:00 18:00 WBC RBC Hgb Hct MCV MCH MCHC RDW Plt Count MPV Absolute Neuts (auto) Neutrophils % Lymphocytes % Monocytes % Eosinophils % Basophils % Nucleated RBC % Sodium Potassium Chloride Carbon Dioxide Anion Gap BUN Creatinine Est GFR (CKD-EPI)AfAm Est GFR (CKD-EPI)NonAf POC Glucometer Random Glucose Lactic Acid Calcium Phosphorus Magnesium Total Bilirubin AST ALT Alkaline Phosphatase Ammonia 20.00 Troponin I Total Protein Albumin TSH Urine Color Urine Appearance Urine pH Ur Specific [place] Urine Protein Urine Glucose (UA) Urine Ketones Urine Blood Urine Nitrite Urine Bilirubin Urine Urobilinogen Ur Leukocyte Esterase Urine WBC (Auto) Urine RBC (Auto) Urine Casts (Auto) U Epithel Cells (Auto) Urine Bacteria (Auto) Salicylates < 1.7 L Opiates Screen Methadone Screen Acetaminophen <2.0 Barbiturate Screen Phencyclidine Screen Ur Amphetamines Screen MDMA (Ecstasy) Screen Benzodiazepines Screen Cocaine Screen U Marijuana (THC) Screen 10/31/19 10/31/19 11/01/19 18:00 21:45 05:58 WBC RBC Hgb Hct MCV MCH MCHC RDW Plt Count MPV Absolute Neuts (auto) Neutrophils % Lymphocytes % Monocytes % Eosinophils % Basophils % Nucleated RBC % Sodium Potassium Chloride Carbon Dioxide Anion Gap BUN Creatinine Est GFR (CKD-EPI)AfAm Est GFR (CKD-EPI)NonAf POC Glucometer 172 159 Random Glucose Lactic Acid 2.1 H Calcium Phosphorus Magnesium Total Bilirubin AST ALT Alkaline Phosphatase Ammonia Troponin I Total Protein Albumin TSH Urine Color Urine Appearance Urine pH Ur Specific [place] Urine Protein Urine Glucose (UA) Urine Ketones Urine Blood Urine Nitrite Urine Bilirubin Urine Urobilinogen Ur Leukocyte Esterase Urine WBC (Auto) Urine RBC (Auto) Urine Casts (Auto) U Epithel Cells (Auto) Urine Bacteria (Auto) Salicylates Opiates Screen Methadone Screen Acetaminophen Barbiturate Screen Phencyclidine Screen Ur Amphetamines Screen MDMA (Ecstasy) Screen Benzodiazepines Screen Cocaine Screen U Marijuana (THC) Screen 11/01/19 11/01/19 11/01/19 10:29 10:45 10:45 WBC 6.4 RBC 3.60 L Hgb 11.4 L Hct 33.8 L MCV 94.0 MCH 31.7 MCHC 33.7 RDW 12.5 Plt Count 304 MPV 7.5 Absolute Neuts (auto) 4.9 Neutrophils % 77.0 Lymphocytes % 16.7 D Monocytes % 5.6 Eosinophils % 0.3 D Basophils % 0.4 Nucleated RBC % 0 Sodium 140 Potassium 4.1 Chloride 107 Carbon Dioxide 27 Anion Gap 6 L BUN 17.1 Creatinine 0.8 Est GFR (CKD-EPI)AfAm 107.89 Est GFR (CKD-EPI)NonAf 93.09 POC Glucometer 161 Random Glucose 178 H Lactic Acid Calcium 8.8 Phosphorus 2.9 Magnesium 2.3 Total Bilirubin 0.5 AST 34 ALT 26 Alkaline Phosphatase 69 Ammonia Troponin I Total Protein 6.9 Albumin 3.5 TSH 0.27 L D Urine Color Urine Appearance Urine pH Ur Specific [place] Urine Protein Urine Glucose (UA) Urine Ketones Urine Blood Urine Nitrite Urine Bilirubin Urine Urobilinogen Ur Leukocyte Esterase Urine WBC (Auto) Urine RBC (Auto) Urine Casts (Auto) U Epithel Cells (Auto) Urine Bacteria (Auto) Salicylates Opiates Screen Methadone Screen Acetaminophen Barbiturate Screen Phencyclidine Screen Ur Amphetamines Screen MDMA (Ecstasy) Screen Benzodiazepines Screen Cocaine Screen U Marijuana (THC) Screen 11/01/19 10:45 WBC RBC Hgb Hct MCV MCH MCHC RDW Plt Count MPV Absolute Neuts (auto) Neutrophils % Lymphocytes % Monocytes % Eosinophils % Basophils % Nucleated RBC % Sodium Potassium Chloride Carbon Dioxide Anion Gap BUN Creatinine Est GFR (CKD-EPI)AfAm Est GFR (CKD-EPI)NonAf POC Glucometer Random Glucose Lactic Acid 1.1 Calcium Phosphorus Magnesium Total Bilirubin AST ALT Alkaline Phosphatase Ammonia Troponin I Total Protein Albumin TSH Urine Color Urine Appearance Urine pH Ur Specific [place] Urine Protein Urine Glucose (UA) Urine Ketones Urine Blood Urine Nitrite Urine Bilirubin Urine Urobilinogen Ur Leukocyte Esterase Urine WBC (Auto) Urine RBC (Auto) Urine Casts (Auto) U Epithel Cells (Auto) Urine Bacteria (Auto) Salicylates Opiates Screen Methadone Screen Acetaminophen Barbiturate Screen Phencyclidine Screen Ur Amphetamines Screen MDMA (Ecstasy) Screen Benzodiazepines Screen Cocaine Screen U Marijuana (THC) Screen Current Medications Generic Name Dose Route Start Last Admin Trade Name Freq PRN Reason Stop Dose Admin Diclofenac Sodium 75 mg 11/01/19 10:00 11/01/19 10:33 Voltaren - PO 75 mg BID RACHEL Administration Heparin Sodium (Porcine) 5,000 unit 11/01/19 14:00 11/01/19 13:49 Heparin - SQ 5,000 unit TID RACHEL Administration Hydrochlorothiazide 12.5 mg 11/01/19 10:00 11/01/19 10:30 Hctz - PO 12.5 mg DAILY RACHEL Administration Lactated Ringer's 1,000 ml in 1,000 mls @ 75 mls/hr 11/01/19 09:30 11/01/19 13:45 Lactated Ringers Solution IV 75 mls/hr ASDIR RACHEL Administration Insulin Aspart 1 vial 11/01/19 11:00 11/01/19 10:33 Novolog Vial Sliding Scale - SQ 2 units ACHS RACHEL Administration Protocol Lisinopril 20 mg 11/01/19 10:00 11/01/19 10:30 Prinivil PO 20 mg DAILY RACHEL Administration Methadone HCl 20 mg 11/01/19 14:15 Dolophine - PO DAILY@0600 RACHEL Pantoprazole Sodium 40 mg 11/01/19 10:00 11/01/19 10:30 Protonix - PO 40 mg DAILY RACHLE Administration Rosuvastatin Calcium 10 mg 11/01/19 22:00 Crestor - PO HS [facility] ASSESSMENT AND PLAN: This is a 64 year old man with a history of HTN, hyperlipidemia, type 2 DM, anxiety, chronic neck and knee pain who presented to the ED after falling at home. 1. Opioid and benzodiazepine dependence - Methadone started - Patient is interested in inpatient rehab at [facility] in [facility] 2. s/p fall 3. Depression/anxiety 4. HTN - Continue lisinopril, HCTZ 5. Type 2 DM - Continue Novolog sliding scale 6. Hyperlipidemia - Continue Crestor 7. GERD - Continue Protonix 8. Chronic pain - Continue Voltaren
--- NOTE | 2019-11-01 16:39 | PN ---
Physical Exam: SUBJECTIVE: No acute events noted overnight. OBJECTIVE: Vital Signs Period Temp Pulse Resp BP Sys/López Pulse Ox Last 24 Hr 97.5 F-98.4 F 78-93 18-20 117-151/54-82 96-97 GENERAL: Awake, alert, and oriented, in no acute distress. LUNGS: Breath sounds equal, clear to auscultation bilaterally. No wheezes, and no crackles. No accessory muscle use. HEART: Regular rate and rhythm, normal S1 and S2 without murmur, rub or gallop. ABDOMEN: Soft, nontender, globose abdomen. LOWER EXTREMITIES: 2+ pulses, warm, well-perfused. No calf tenderness. No peripheral edema. NEUROLOGICAL: Cranial nerves II-XII intact. Normal speech. Laboratory Results - last 24 hr 10/31/19 10/31/19 10/31/19 14:13 18:00 18:00 WBC RBC Hgb Hct MCV MCH MCHC RDW Plt Count MPV Absolute Neuts (auto) Neutrophils % Lymphocytes % Monocytes % Eosinophils % Basophils % Nucleated RBC % Sodium 140 Potassium 4.0 Chloride 106 Carbon Dioxide 27 Anion Gap 8 BUN 24.1 H Creatinine 1.0 Est GFR (CKD-EPI)AfAm 90.50 Est GFR (CKD-EPI)NonAf 78.08 POC Glucometer Random Glucose 200 H Lactic Acid Calcium 9.5 Phosphorus Magnesium Total Bilirubin 0.5 AST 30 ALT 28 Alkaline Phosphatase 84 Ammonia Troponin I 0.04 Total Protein 7.7 Albumin 4.1 TSH 0.68 Salicylates < 1.7 L Acetaminophen <2.0 10/31/19 10/31/19 10/31/19 18:00 18:00 21:45 WBC RBC Hgb Hct MCV MCH MCHC RDW Plt Count MPV Absolute Neuts (auto) Neutrophils % Lymphocytes % Monocytes % Eosinophils % Basophils % Nucleated RBC % Sodium Potassium Chloride Carbon Dioxide Anion Gap BUN Creatinine Est GFR (CKD-EPI)AfAm Est GFR (CKD-EPI)NonAf POC Glucometer 172 Random Glucose Lactic Acid 2.1 H Calcium Phosphorus Magnesium Total Bilirubin AST ALT Alkaline Phosphatase Ammonia 20.00 Troponin I Total Protein Albumin TSH Salicylates Acetaminophen 11/01/19 11/01/19 11/01/19 05:58 10:29 10:45 WBC 6.4 RBC 3.60 L Hgb 11.4 L Hct 33.8 L MCV 94.0 MCH 31.7 MCHC 33.7 RDW 12.5 Plt Count 304 MPV 7.5 Absolute Neuts (auto) 4.9 Neutrophils % 77.0 Lymphocytes % 16.7 D Monocytes % 5.6 Eosinophils % 0.3 D Basophils % 0.4 Nucleated RBC % 0 Sodium Potassium Chloride Carbon Dioxide Anion Gap BUN Creatinine Est GFR (CKD-EPI)AfAm Est GFR (CKD-EPI)NonAf POC Glucometer 159 161 Random Glucose Lactic Acid Calcium Phosphorus Magnesium Total Bilirubin AST ALT Alkaline Phosphatase Ammonia Troponin I Total Protein Albumin TSH Salicylates Acetaminophen 11/01/19 11/01/19 10:45 10:45 WBC RBC Hgb Hct MCV MCH MCHC RDW Plt Count MPV Absolute Neuts (auto) Neutrophils % Lymphocytes % Monocytes % Eosinophils % Basophils % Nucleated RBC % Sodium 140 Potassium 4.1 Chloride 107 Carbon Dioxide 27 Anion Gap 6 L BUN 17.1 Creatinine 0.8 Est GFR (CKD-EPI)AfAm 107.89 Est GFR (CKD-EPI)NonAf 93.09 POC Glucometer Random Glucose 178 H Lactic Acid 1.1 Calcium 8.8 Phosphorus 2.9 Magnesium 2.3 Total Bilirubin 0.5 AST 34 ALT 26 Alkaline Phosphatase 69 Ammonia Troponin I Total Protein 6.9 Albumin 3.5 TSH 0.27 L D Salicylates Acetaminophen Active Medications Generic Name Dose Route Start Last Admin Trade Name Juvenalq PRN Reason Stop Dose Admin Diclofenac Sodium 75 mg 11/01/19 10:00 11/01/19 10:33 Voltaren - PO 75 mg BID RACHEL Administration Heparin Sodium (Porcine) 5,000 unit 11/01/19 14:00 11/01/19 13:49 Heparin - SQ 5,000 unit TID RACHEL Administration Hydrochlorothiazide 12.5 mg 11/01/19 10:00 11/01/19 10:30 Hctz - PO 12.5 mg DAILY RACHEL Administration Lactated Ringer's 1,000 ml in 1,000 mls @ 75 mls/hr 11/01/19 09:30 11/01/19 13:45 Lactated Ringers Solution IV 75 mls/hr ASDIR RACHEL Administration Insulin Aspart 1 vial 11/01/19 11:00 11/01/19 10:33 Novolog Vial Sliding Scale - SQ 2 units ACHS RACHEL Administration Protocol Lisinopril 20 mg 11/01/19 10:00 11/01/19 10:30 Prinivil PO 20 mg DAILY RACHEL Administration Methadone HCl 20 mg 11/01/19 14:15 Dolophine - PO DAILY@0600 RACHEL Pantoprazole Sodium 40 mg 11/01/19 10:00 11/01/19 10:30 Protonix - PO 40 mg DAILY RACHEL Administration Rosuvastatin Calcium 10 mg 11/01/19 22:00 Crestor - PO HS [facility] ASSESSMENT/PLAN: This is a 64 y/o M with a PMHx of DM, HTN, HLD, anxiety, chronic neck/knee pain( on chronic percocet use) on several psych meds presenting s/p mechanical fall. Pt states he was making coffee around 4 am and was trying to sit down but missed the chair and fell on his buttock. #Mechanical fall - high dose of alprazolam, percocet for multiple years leading to weakness and confusion - Detox consulted (Rony) recommending 20mg methadone given first time user of methadone. Furthermore, states he will do inpatient 5 days detox at that [facility]. - Psych consulted to help pt wean off xanax - dc opiates, wean off xanax and place pt on ativan prn protocol - UTOX -Benzos and opiates - likely mechanical but because pt. is poor historian, endorses forgetfulness ( likely 2/2 chronic benzo use), will also evaluate for possible syncope obtain B/L knee x-ray, L spine xray, Obtain echo/carotids, Trops/EKG x3, obtain orthostatics, - PT evaluation he walked 500 ft - B12,RPR, TSH, lipids, A1c Depression - not suicidal at this time - stable mood - can restart SSRI. DM -continue sliding scale HTN - continue home meds as prescribed HLD - continue statin as prescribed GERD - Restart ppi DVT ppx: Heparin 5K TID Dispo: pt would like to go to inpatient rehab at [facility]. Visit type - Emergency Visit Emergency Visit: Yes ED Registration Date: 10/31/19 Care time: The patient presented to the Emergency Department on the above date and was hospitalized for further evaluation of their emergent condition. - New Patient This patient is new to me today: No - Critical Care Critical Care patient: No - Discharge Referral Referred to [facility] Med P.C.: No ATTENDING PHYSICIAN STATEMENT I saw and evaluated the patient. I reviewed the resident's note and discussed the case with the resident. I agree with the resident's findings and plan as documented. SUBJECTIVE: OBJECTIVE: ASSESSMENT AND PLAN:
[2019-11-01] MEDS ORDERED: ROSUVASTATIN CA 10 MG TABLET (FP) PO SCH (22:00)
[2019-11-01] MEDS ORDERED: PT OWN MED DRAWER 7, Y5N ONE (22:01)
[2019-11-02] MEDS: LACTATED RINGERS SOLUTION 1,000 ML/1,000 ML INFUS.BAG IV SCH (04:15)
[2019-11-02] MEDS: INSULIN SLIDING SCALE (NOVOLOG) 1 VIAL SQ SCH ×3 (06:25→17:11)
[2019-11-02] MEDS: HEPARIN NA (PORCINE) 5,000 UNITS/ML 1ML VIAL SQ SCH ×2 (06:25→15:10)
[2019-11-02 07:44] LABS: BASO % 0.5 % (0-2.0); EOS % 0.5 % (0-4.5); HEMATOCRIT 33.8 % (35.4-49); HEMOGLOBIN 11.3 GM/dL (11.7-16.9); LYMPH % 23.7 % (8-40); MCH 31.6 pg (25.7-33.7); MCHC 33.4 g/dl (32.0-35.9); MEAN CELL VOLUME 94.5 fl (80-96); MEAN PLT VOLUME 7.7 fl (7.5-11.1); MONO % 5.9 % (3.8-10.2); NEUT % 69.4 % (42.8-82.8); PLATELET COUNT 297 K/MM3 (134-434); RBC 3.58 M/mm3 (4.00-5.60); RDW 12.6 % (11.9-15.9); WHITE BLOOD COUNT 5.6 K/mm3 (4.0-10.0)
[2019-11-02 08:13] LABS: ALBUMIN 3.5 g/dl (3.4-5.0); BILIRUBIN,TOTAL 0.5 mg/dL (0.2-1); BLOOD UREA NITROGEN 17.9 mg/dL (7-18); CREATININE 0.9 mg/dL (0.55-1.3); POTASSIUM 4.9 mmol/L (3.5-5.1); TOT PROT 6.8 g/dl (6.4-8.2)
[2019-11-02] MEDS: PANTOPRAZOLE 40 MG TABLET PO SCH (09:20)
[2019-11-02] MEDS: HYDROCHLOROTHIAZIDE 12.5 MG CAPSULE (FP) PO SCH (09:21)
[2019-11-02] MEDS: LISINOPRIL 20 MG TABLET (FP) PO SCH (09:21)
[2019-11-02] MEDS ORDERED: PT OWN MED DRAWER 7, Y5N ONE (09:23)
[2019-11-02] MEDS: DICLOFENAC SODIUM 25 MG TABLET.DR PO SCH (10:52)
[2019-11-02] MEDS ORDERED: INSULIN (NOVOLOG) ASPART 100 UNITS/ML 10ML VIAL ONE (12:03)
[2019-11-02 13:58] VITALS: BP 140/80; PULSE 84; TEMP 98.8
[2019-11-02] MEDS ORDERED: ALPRAZolam 0.25 MG TABLET PO PRN (14:19)
--- NOTE | 2019-11-02 15:05 | CON.PSY ---
Psychiatry Consult Chief Complaint: Patient with a history of Pain meds and Xanax use and abuse seen for Psych eval.. Patient being transferred to [facility] for Detox. No history of Depression or Psychosis. Symptoms: reports: Anxiety - Previous Psychiatric Treatment Outpatient: None Inpatient: None - Previous Substance Abuse Treatment Outpatient: None Inpatient: None - Reason for Previous Treatment Reason for Previous Treatment: Heroin or Other Narcotics, Prescription Drug - Current Medications Current Medications: Active Medications Alprazolam (Xanax -) 0.5 mg PO DAILY PRN PRN Reason: ANXIETY Diclofenac Sodium (Voltaren -) 75 mg PO BID [facility] Last Admin: 11/02/19 10:52 Dose: 75 mg Heparin Sodium (Porcine) (Heparin -) 5,000 unit SQ TID [facility] Last Admin: 11/02/19 06:25 Dose: 5,000 unit Hydrochlorothiazide (Hctz -) 12.5 mg PO DAILY [facility] Last Admin: 11/02/19 09:21 Dose: 12.5 mg Lactated Ringer's (Lactated Ringers Solution) 1,000 ml in 1,000 mls @ 75 mls/ hr IV ASDIR [facility] Last Admin: 11/02/19 04:15 Dose: 75 mls/hr Insulin Aspart (Novolog Vial Sliding Scale -) 1 vial SQ ACHS [facility]; Protocol Last Admin: 11/02/19 12:05 Dose: 2 units Lisinopril (Prinivil) 20 mg PO DAILY [facility] Last Admin: 11/02/19 09:21 Dose: 20 mg Methadone HCl (Dolophine -) 20 mg PO DAILY@0600 [facility] Pantoprazole Sodium (Protonix -) 40 mg PO DAILY [facility] Last Admin: 11/02/19 09:20 Dose: 40 mg Rosuvastatin Calcium (Crestor -) 10 mg PO HS [facility] Last Admin: 11/01/19 22:04 Dose: 10 mg - Allergies Allergies: Allergies Allergy/AdvReac Type Severity Reaction Status Date / Time No Known Allergies Allergy Verified 10/31/19 14:53 - Current Living Status Usual Living Arrangement: With Significant Other - Current Mental Status Evaluation Appearance: Well Groomed Attitude: Cooperative - Affect Affect: Full Range Appropriateness: Appropriate to Content - Mood Mood: Euthymic - Speech/Language Expressive: Coherent - Psychomotor Activity Psychomotor Activity: Normal - Thought Process Thought Process: Intact - Thought Content Hallucinations: Absent Delusions: Absent - Self Perception Self Perception: No Impairment - Cognition Attention: Alert Orientation: Time Memory, Short Term: 3/3 Memory, Remote with Promptin/3 - Concentration Serial Sevens Intact: Yes Simple Calculations Intact: Yes - Abstraction Proverb Interpretation: Intact Judgement: Intact - Insight Insight: Intact - Impulse Control Impulse Control: Good Control - Suicidal Ideation Suicidal Ideation: No - Homicidal Ideation Homicidal Ideation: No Assessment/Plan 1) agree with transfer to [facility] for Detox.
--- NOTE | 2019-11-02 15:16 | DS ---
Physical Exam: SUBJECTIVE: Patient seen and examined. No acute events. OBJECTIVE: Vital Signs Period Temp Pulse Resp BP Sys/López Pulse Ox Last 24 Hr 98.1 F-98.8 F 70-85 18-20 129-145/61-80 PHYSICAL EXAM GENERAL: The patient is awake, alert, and fully oriented, in no acute distress. LUNGS: Breath sounds equal, clear to auscultation bilaterally, no wheezes, no crackles, no accessory muscle use. HEART: Regular rate and rhythm, S1, S2 without murmur, rub or gallop. ABDOMEN: Soft, nontender, nondistended. NEUROLOGICAL: Cranial nerves II through XII grossly intact. Normal speech, gait not observed. PSYCH: Normal mood, normal affect. LABS Laboratory Results - last 24 hr 11/01/19 11/01/19 11/02/19 17:39 22:11 06:23 WBC RBC Hgb Hct MCV MCH MCHC RDW Plt Count MPV Absolute Neuts (auto) Neutrophils % Lymphocytes % Monocytes % Eosinophils % Basophils % Nucleated RBC % Sodium Potassium Chloride Carbon Dioxide Anion Gap BUN Creatinine Est GFR (CKD-EPI)AfAm Est GFR (CKD-EPI)NonAf POC Glucometer 181 163 189 Random Glucose Calcium Total Bilirubin AST ALT Alkaline Phosphatase Total Protein Albumin Free T4 11/02/19 11/02/19 11/02/19 06:50 06:50 11:56 WBC 5.6 RBC 3.58 L Hgb 11.3 L Hct 33.8 L MCV 94.5 MCH 31.6 MCHC 33.4 RDW 12.6 Plt Count 297 MPV 7.7 Absolute Neuts (auto) 3.9 Neutrophils % 69.4 Lymphocytes % 23.7 D Monocytes % 5.9 Eosinophils % 0.5 Basophils % 0.5 Nucleated RBC % 0 Sodium 142 Potassium 4.9 Chloride 109 H Carbon Dioxide 28 Anion Gap 6 L BUN 17.9 Creatinine 0.9 Est GFR (CKD-EPI)AfAm 102.79 Est GFR (CKD-EPI)NonAf 88.69 POC Glucometer 172 Random Glucose 201 H Calcium 9.0 Total Bilirubin 0.5 AST 31 ALT 27 Alkaline Phosphatase 63 Total Protein 6.8 Albumin 3.5 Free T4 1.20 H HOSPITAL COURSE: Date of Admission:10/31/19 This is a 64 y/o M with a PMHx of DM, HTN, HLD, anxiety, chronic neck/knee pain( on chronic percocet use) on several psych meds (Xanax 1mg TID scheduled) admitted for mechanical fall/syncope r/o. Echo, caortid found to be normal. Syncope ruled out. Pt admitted to taking percocet 11/2 tabs/day X 30 yrs and xanax 1mg TIDSCH so we had Dr. Uribe evaluate pt for detox. Pt was told to follow up in suboxone program outpatient but family refused stating they would like [facility] inpatient detox so that was facilitated and pt will be transferred there. We discontinued his perocet and switched his dose from 1mg to 0.5mg lackey PRN for withdrawal symptoms. Pt notified to follow up with psych and to continue his other psych meds as prescribed by his PCP. Pt refused psych in past and agrees to follow up with psych. Psych in patient agrees to detox at [facility]. Date of Discharge: 11/02/19 Minutes to complete discharge: 35 Discharge Summary Problems reviewed: Yes Reason For Visit: ADVERSE EFFECT OF DRUG, WEAKNESS, FALL Current Active Problems Medication adverse effect (Acute) Benzodiazepine dependence (Chronic) Opiate dependence (Chronic) Condition: Improved - Instructions Diet, Activity, Other Instructions: You were admitted for a fall. A full syncope work up was done that did not reveal any acute conditions involving your heart or brain that could have been related to your fall. Due to your extensive history of opioid and benzodiazepine use, it is highly possible your symptoms may be related to these medications. We recommend that you start a rehab program at [facility] at [facility] to help with your opioid use. Additionally, you should follow up with the psychiatrist in regards to tapering your benzodiazepine. Medications We have made the following changes to your medication regimen: Please STOP taking Xanax 1 mg. START taking Xanax 0.5 mg once a day as needed. You will need follow up with the psychiatrist to adjust this dosage. Please STOP taking Meloxicam. Recommendations -Please follow up with your primary care physician, Dr. Schulte within 1 week as soon as you are discharged to go over your overall health. Alternatively, you may also follow up with Dr. Jalen Patel so we will provide you his contact info. -Please follow up with Dr. Uribe for outpatient evaluation of your opioid and benzodiazepine dependence. It is highly advised that you go to [facility] to obtain your Suboxone dose to help treat your opioid dependence. The clinic welcomes walk-ins. -Please follow up with the psychiatrist, Dr. Dumont as soon as you are discharged to further evaluate your benzodiazepine use. You may need a tapered dose that will need to managed as an outpatient. You should continue all your other home medications as prescribed. You should return to the ER if you have any worsening of your current symptoms or: chest pain, shortness of breath, abdominal pain, weakness, or numbness. Referrals: Cathy Dumont MD [Staff Physician] - Jalen Oviedo MD [Staff Physician] - 1 Week Alonzo Schulte MD [Primary Care Provider] - 1 Week Josiah Uribe DO [Staff Physician] - 1 Week Disposition: HOME - Home Medications Comprehensive Discharge Medication List: Ambulatory Orders Aripiprazole 5 mg PO DAILY 10/31/19 Escitalopram Oxalate [Lexapro -] 20 mg PO DAILY 10/31/19 Amlodipine Besylate/Benazepril [Amlodipine-Benazepril 5-20 mg] 1 each PO DAILY 11/01/19 Alprazolam [Xanax] 0.5 mg PO DAILY PRN #0 tablet MDD 0.5 11/02/19 Rosuvastatin Calcium [Crestor] 10 mg PO DAILY 11/02/19 This patient is new to me today: Yes Date on this admission: 11/02/19 Emergency Visit: No Critical Care patient: No - Discharge Referral Referred to [facility] Med P.C.: No ATTENDING PHYSICIAN STATEMENT I saw and evaluated the patient. I reviewed the resident's note and discussed the case with the resident. I agree with the resident's findings and plan as documented. SUBJECTIVE: OBJECTIVE: ASSESSMENT AND PLAN:
--- NOTE | 2019-11-02 16:24 | PN ---
Teaching Attending Note Name of Resident: Inderjit Person ATTENDING PHYSICIAN STATEMENT I saw and evaluated the patient. I reviewed the resident's note and discussed the case with the resident. I agree with the resident's findings and plan as documented. SUBJECTIVE: Feels well, no withdrawal symptoms. No abdominal pain/nausea/ vomiting/chills/shakes. OBJECTIVE: Afebrile, Hemodynamicaly Stable. Last Vital Signs Temp Pulse Resp BP Pulse Ox 98.8 F 84 20 140/80 97 11/02/19 13:57 11/02/19 13:57 11/02/19 13:57 11/02/19 13:57 10/31/19 23:27 HEENT: Atraumatic, Normocephalic. HEART: S1, S2, RRR LUNGS: Clear to auscultation ABDOMEN: High BMI. Soft, non-tender, non-distended, normal BS EXTREMITIES: No edema, no calf tenderness. Laboratory Results - last 24 hr 11/01/19 11/01/19 11/02/19 17:39 22:11 06:23 WBC RBC Hgb Hct MCV MCH MCHC RDW Plt Count MPV Absolute Neuts (auto) Neutrophils % Lymphocytes % Monocytes % Eosinophils % Basophils % Nucleated RBC % Sodium Potassium Chloride Carbon Dioxide Anion Gap BUN Creatinine Est GFR (CKD-EPI)AfAm Est GFR (CKD-EPI)NonAf POC Glucometer 181 163 189 Random Glucose Calcium Total Bilirubin AST ALT Alkaline Phosphatase Total Protein Albumin Free T4 11/02/19 11/02/19 11/02/19 06:50 06:50 11:56 WBC 5.6 RBC 3.58 L Hgb 11.3 L Hct 33.8 L MCV 94.5 MCH 31.6 MCHC 33.4 RDW 12.6 Plt Count 297 MPV 7.7 Absolute Neuts (auto) 3.9 Neutrophils % 69.4 Lymphocytes % 23.7 D Monocytes % 5.9 Eosinophils % 0.5 Basophils % 0.5 Nucleated RBC % 0 Sodium 142 Potassium 4.9 Chloride 109 H Carbon Dioxide 28 Anion Gap 6 L BUN 17.9 Creatinine 0.9 Est GFR (CKD-EPI)AfAm 102.79 Est GFR (CKD-EPI)NonAf 88.69 POC Glucometer 172 Random Glucose 201 H Calcium 9.0 Total Bilirubin 0.5 AST 31 ALT 27 Alkaline Phosphatase 63 Total Protein 6.8 Albumin 3.5 Free T4 1.20 H Current Medications Generic Name Dose Route Start Last Admin Trade Name Freq PRN Reason Stop Dose Admin Alprazolam 0.5 mg 11/02/19 14:19 Xanax - PO DAILY PRN ANXIETY Diclofenac Sodium 75 mg 11/01/19 10:00 11/02/19 10:52 Voltaren - PO 75 mg BID RACHEL Administration Heparin Sodium (Porcine) 5,000 unit 11/01/19 14:00 11/02/19 15:10 Heparin - SQ 5,000 unit TID RACHEL Administration Hydrochlorothiazide 12.5 mg 11/01/19 10:00 11/02/19 09:21 Hctz - PO 12.5 mg DAILY RACHEL Administration Lactated Ringer's 1,000 ml in 1,000 mls @ 75 mls/hr 11/01/19 09:30 11/02/19 04:15 Lactated Ringers Solution IV 75 mls/hr ASDIR RACHEL Administration Insulin Aspart 1 vial 11/01/19 11:00 11/02/19 12:05 Novolog Vial Sliding Scale - SQ 2 units ACHS RACHEL Administration Protocol Lisinopril 20 mg 11/01/19 10:00 11/02/19 09:21 Prinivil PO 20 mg DAILY RACHEL Administration Methadone HCl 20 mg 11/01/19 14:15 Dolophine - PO DAILY@0600 RACHEL Pantoprazole Sodium 40 mg 11/01/19 10:00 11/02/19 09:20 Protonix - PO 40 mg DAILY RACHEL Administration Rosuvastatin Calcium 10 mg 11/01/19 22:00 11/01/19 22:04 Crestor - PO 10 mg HS RACHEL Administration Home Medications Medication Instructions Recorded Aripiprazole 5 mg PO DAILY 10/31/19 Escitalopram Oxalate [Lexapro -] 20 mg PO DAILY 10/31/19 Amlodipine Besylate/Benazepril 1 each PO DAILY 11/01/19 [Amlodipine-Benazepril 5-20 mg] Alprazolam [Xanax] 0.5 mg PO DAILY PRN #0 tablet MDD 11/02/19 0.5 Rosuvastatin Calcium [Crestor] 10 mg PO DAILY 11/02/19 ASSESSMENT AND PLAN: 64 year old man with a history of Polysubstance Abuse (Opiates, Benzodiazepines) , HTN, HLD, DM 2, Anxiety, chronic neck and knee pain who presented to the ED after sustaining a fall at home. 1. Opioid and Benzodiazepine Dependence Evaluated by Addiction Medicine - Methadone started. On Benzo PRN while in- patient. Accepted at [facility] for Detox - will be transferred. No signs of acue or active withdrawal currently. 2. Depression/Anxiety - resume Lexapro, Aripiprazole. 3. HTN - Continue Norvasc/Benzapril, HCTZ 4. DM 2 - Continue Novolog sliding scale 5. Hyperlipidemia - Continue Crestor 6. GERD - Continue Protonix 7. Borderline Hyperthyroid - TSH 0.27/free T4 1.20 - for out-patient referral to Dr. Jalen Young DVT Px - Heparin SQ.
== END 2019-11-02 18:49 | disposition home or self-care (01) | DRG 897 ==
LOC: JER 12:28 → JERBED 17:20 → J6S 23:12
DX: F11.20 Opioid dependence, uncomplicated (principal); F13.20 Sedative, hypnotic or anxiolytic dependence, uncomplicated; I10 Essential (primary) hypertension; E11.9 Type 2 diabetes mellitus without complications; E78.5 Hyperlipidemia, unspecified; F32.9 Major depressive disorder, single episode, unspecified; F41.9 Anxiety disorder, unspecified; M54.9 Dorsalgia, unspecified; M54.2 Cervicalgia; Z79.84 Long term (current) use of oral hypoglycemic drugs; K21.9 Gastro-esophageal reflux disease without esophagitis; G89.29 Other chronic pain
CPT/HCPCS: 36415; 70450-TC; 71045-TC-FY; 80053; 80307; 81003; 82140; 82803; 82962; 83605; 83735; 84100; 84439; 84443; 84484; 85025; 85610; 85730; 87040; 87086; 93005; 93010; 93306-TC; 93880-TC; 97116-GP; 97161-GP; 99285-25; J1644